=== PATIENT | female | born 1955 | race Two or more races ===

== ENCOUNTER 2023-11-25 18:50 | Emergency (ER) | payer OTHER ==
[~2023-11-25] VITALS: Ht 157.5 cm; Wt 67.6 kg
[2023-11-25] MEDS ORDERED: METFORMIN HCL500 MG (19:12)
[2023-11-25] MEDS ORDERED: TRULICITY0.75 MG/0. (19:12)
[2023-11-25] MEDS ORDERED: LANTUS SOL100 UNIT/1 (19:13)
[2023-11-25] MEDS ORDERED: TOPROL XL50 M1 (19:13)
[2023-11-25] MEDS ORDERED: NEURONTIN600 M1 (19:13)
[2023-11-25] MEDS ORDERED: KETOROLAC TROMETHAMINE 60 MG VIAL IM ONE (19:45)
[2023-11-25 20:28] LABS: HEMOGLOBIN 12.8 g/dL (12.0-15.00); MEAN CELL VOLUME 94.4 fL (80.00-100.00); MEAN CORPUSCULAR HEMOGLOBIN 31.9 pg (27.00-32.0); MEAN CORPUSCULAR HGB CONC 33.7 g/dl (32.0-36.0); PLATELET COUNT 227 K/uL (150-450); RED BLOOD COUNT 4.02 M/uL (4.00-6.00); RED CELL DISTRIBUTION WIDTH 13.2 % (11.5-14.5)
[2023-11-25] MEDS ORDERED: ANALPRAM HC 2.530 GM RECTAL (20:52)
[2023-11-25] MEDS ORDERED: SURFAK240 M1 PO (20:53)
== END 2023-11-25 21:33 | disposition home or self-care (01) ==
LOC: ER 18:51
PROVIDERS: General Practice
DX: K59.00 Constipation, unspecified (principal); K64.9 Unspecified hemorrhoids
CPT/HCPCS: 36415; 74240; 96372; 99283; J1885

== ENCOUNTER 2024-03-02 11:28 | Emergency (ER) | payer OTHER ==
[~2024-03-02] VITALS: Ht 157.5 cm; Wt 65.3 kg
[~2024-03-02 11:28] MED LIST: ANALPRAM HC 2.530 GM RECTAL; LANTUS SOL100 UNIT/1; METFORMIN HCL500 MG; NEURONTIN600 M1; SURFAK240 M1 PO; TOPROL XL50 M1; TRULICITY0.75 MG/0.
[2024-03-02] MEDS ORDERED: KETOROLAC TROMETHAMINE 60 MG VIAL IM ONE (13:15)
[2024-03-02] MEDS ORDERED: KETOROLAC TROMETHAMINE 30 MG VIAL IM ONE (13:15)
[2024-03-02] MEDS ORDERED: ORPHENADRINE CITRATE 30 MG/ML AMPUL ONE (13:15)
[2024-03-02] MEDS ORDERED: ORPHENADRINE CITRATE 30 MG/ML AMPUL IM ONE (13:15)
== END 2024-03-02 15:25 | disposition home or self-care (01) ==
LOC: ER 11:31
DX: M54.9 Dorsalgia, unspecified (principal); I10 Essential (primary) hypertension; E11.9 Type 2 diabetes mellitus without complications; Z79.84 Long term (current) use of oral hypoglycemic drugs
CPT/HCPCS: 96372; 99282; J1885; J2360

== ENCOUNTER 2024-03-31 12:11 | Emergency (ER) | payer OTHER ==
[~2024-03-31] VITALS: Ht 157.5 cm; Wt 63.5 kg
[2024-03-31] MEDS ORDERED: NAMENDA1 EACH PO (12:24)
[2024-03-31] MEDS ORDERED: KETOROLAC TROMETHAMINE 60 MG VIAL IM STA (13:57)
[2024-03-31] MEDS ORDERED: ORPHENADRINE CITRATE 30 MG/ML AMPUL IM STA (13:57)
[2024-03-31] MEDS ORDERED: ORPHENADRINE CITRATE 30 MG/ML AMPUL ONE (14:07)
[2024-03-31] MEDS ORDERED: KETOROLAC TROMETHAMINE 60 MG VIAL IM ONE (14:07)
== END 2024-03-31 14:41 | disposition home or self-care (01) ==
LOC: ER 12:11
DX: M54.9 Dorsalgia, unspecified (principal); I10 Essential (primary) hypertension; E11.9 Type 2 diabetes mellitus without complications; Z79.84 Long term (current) use of oral hypoglycemic drugs; Z79.4 Long term (current) use of insulin
CPT/HCPCS: 96372; 99282; J1885; J2360